=== PATIENT | female | born 1990 ===

== ENCOUNTER 2022-07-08 05:32 | Inpatient (IN) | payer BC ==
[2022-07-08] MEDS: Lactated Ringers 1,000 ML IV SCH ×2 (05:40→07:05)
[2022-07-08] MEDS ORDERED: Citric Acid/Sodium Citrate Solution 30 ML Cup PO ONE (06:17)
[2022-07-08] MEDS ORDERED: Sodium Chloride 0.9% 20 ML SDV IV PRN (06:17)
[2022-07-08] MEDS ORDERED: Sodium Chloride 0.9% 2.5 ML Syringe FLUSH PRN (06:17)
[2022-07-08] MEDS ORDERED: Sodium Chloride 0.9% 10 ML Syringe FLUSH PRN (06:17)
[2022-07-08 06:27] LABS: HEMATOCRIT 34.7 % (36.0-46.0); HEMOGLOBIN 11.4 g/dL (12.0-16.0); MEAN CORPUSCULAR HGB CONC 32.9 g/dL (31.0-37.0); MEAN CORPUSCULAR VOLUME 79.2 fL (80.0-98.0); PLATELET COUNT,PLT 318 K/uL (150-400); RED BLOOD CELL COUNT 4.38 M/uL (4.30-5.90); WHITE BLOOD CELL COUNT,WBC 9.12 K/uL (4.0-11.0)
[2022-07-08] MEDS ORDERED: Oxytocin/0.9 % Sodium Chloride 30 UNIT/500 ML BAG IV SCH (06:30)
[2022-07-08] MEDS ORDERED: Ropivacaine 0.5% 5 MG/ML 30 ML SDV ONE ×2 (07:55→08:49)
[2022-07-08] MEDS ORDERED: Oxytocin 10 Units/1 ML SDV ONE (07:55)
[2022-07-08] MEDS ORDERED: Morphine PF 10 MG/10 ML SDV ONE (07:55)
[2022-07-08] MEDS ORDERED: ceFAZolin 1 GM Vial ONE (07:55)
[2022-07-08] MEDS ORDERED: Dexamethasone 4 MG/ML 5 ML MDV ONE (07:55)
[2022-07-08] MEDS ORDERED: Ondansetron 4 MG/2 ML SDV ONE (07:55)
[2022-07-08] MEDS ORDERED: fentaNYL 100 MCG/2 ML SDV ONE (07:55)
[2022-07-08] MEDS ORDERED: Ketorolac 30 MG/ML SDV ONE (07:55)
[2022-07-08] MEDS ORDERED: Ondansetron 4 MG/2 ML SDV IVPUSH PRN ×3 (07:56→09:32)
[2022-07-08] MEDS ORDERED: Ibuprofen 800 MG Tab PO PRN (07:56)
[2022-07-08] MEDS ORDERED: Misoprostol 200 MCG Tab RECTAL PRN (07:56)
[2022-07-08] MEDS ORDERED: diphenhydrAMINE 50 MG/ML SDV IVPUSH PRN ×2 (07:56→09:32)
[2022-07-08] MEDS ORDERED: Tranexamic Acid 1,000 MG in Sodium Chloride 0.9% 100 ML IV PRN (07:56)
[2022-07-08] MEDS ORDERED: Acetaminophen/oxyCODONE 325-5 MG Tab PO PRN ×2 (07:56→09:32)
[2022-07-08] MEDS ORDERED: Bisacodyl 10 MG Supp RECTAL PRN (07:56)
[2022-07-08] MEDS ORDERED: Methylergonovine 0.2 MG/1 ML Amp IM PRN (07:56)
[2022-07-08] MEDS ORDERED: Oxytocin 10 Units/1 ML SDV IM PRN (07:56)
[2022-07-08] MEDS ORDERED: Lanolin 100% Cream 7 GM Tube TOP PRN (07:56)
[2022-07-08] MEDS ORDERED: Lactated Ringers 1,000 ML IV SCH (08:00)
[2022-07-08] MEDS ORDERED: Ketorolac 30 MG/ML SDV IVPUSH SCH (08:00)
[2022-07-08] MEDS ORDERED: ceFAZolin 2 GM Vial ONE (08:21)
[2022-07-08] MEDS ORDERED: Bupivacaine 0.5% 10 ML SDV ONE (08:49)
[2022-07-08] MEDS ORDERED: Albuterol 0.083% 2.5 MG/3 ML Neb Soln NEB PRN (09:32)
[2022-07-08] MEDS ORDERED: droPERidol 5 MG/2 ML SDV IVPUSH PRN (09:32)
[2022-07-08] MEDS ORDERED: ePHEDrine 50 MG/ML SDV IVPUSH PRN (09:32)
[2022-07-08] MEDS ORDERED: HYDROmorphone 2 MG/ML Syringe IVPUSH PRN (09:32)
[2022-07-08] MEDS ORDERED: fentaNYL 100 MCG/2 ML SDV IVPUSH PRN ×2 (09:32)
[2022-07-08] MEDS ORDERED: Naloxone 0.4 MG/ML SDV IVPUSH PRN (09:32)
[2022-07-08] MEDS ORDERED: Metoclopramide 10 MG/2 ML SDV IVPUSH PRN (09:32)
[2022-07-08] MEDS ORDERED: Morphine 2 MG/ML SYRINGE IVPUSH PRN (09:32)
[2022-07-08] MEDS: Ketorolac 30 MG/ML SDV IVPUSH SCH ×2 (14:26→20:39)
[2022-07-08] MEDS: Docusate Sodium 100 MG Cap PO SCH (20:38)
[2022-07-09] MEDS: Ketorolac 30 MG/ML SDV IVPUSH SCH ×2 (02:34→08:15)
[2022-07-09 05:43] LABS: HEMOGLOBIN 10.1 g/dL (12.0-16.0)
[2022-07-09] MEDS: Docusate Sodium 100 MG Cap PO SCH ×2 (08:16→20:40)
[2022-07-09] MEDS: Acetaminophen/oxyCODONE 325-5 MG Tab PO PRN (18:35)
[2022-07-10] MEDS: Acetaminophen/oxyCODONE 325-5 MG Tab PO PRN (08:23)
[2022-07-10] MEDS: Docusate Sodium 100 MG Cap PO SCH (08:24)
== END 2022-07-10 13:35 | disposition home or self-care (01) | DRG 540 ==
LOC: MW.OB 05:32
PROVIDERS: ADMIT Obstetrics & Gynecology; ATTEND Obstetrics & Gynecology
PROC: 10D00Z1 Extraction of Products of Conception, Low, Open Approach (ICD-10-PCS; principal; 2022-07-08)
DX: O34.211 Maternal care for low transverse scar from previous cesarean delivery (principal); Z37.0 Single live birth; Z3A.39 39 weeks gestation of pregnancy
CPT/HCPCS: 36415; 51702; 59025; 85014; 85018; 85027; 86592; 86850; 86900; 86901; A9270-GY; J0690; J1100; J1200; J1885; J2274; J2405; J2590; J2795; J3010; J3490; J7120